=== PATIENT | female | born 1990 | race African-American/Black ===

== ENCOUNTER 2019-01-22 11:56 | Outpatient (CLI) | payer BC ==
--- NOTE | 2019-01-22 13:04 | RAD ---
TWO VIEWS LUMBAR SPINE: INDICATION: Status post nephrectomy with low back pain. FINDINGS: There are 5 lumbar-type vertebrae. There is mild disk degenerative disease at L5-S1. No acute fract ure or subluxation is evident. SI joints are normal-appearing. IMPRESSION: Mild disk degenerative disease at L5-S1. POS: [facility]
== END 2019-01-22 11:57 | disposition home or self-care (01) ==
LOC: BICRAD 11:56
PROVIDERS: ATTEND Family Medicine
DX: Z48.816 Encounter for surgical aftercare following surgery on the genitourinary system (principal); Z90.5 Acquired absence of kidney; M51.37 Other intervertebral disc degeneration, lumbosacral region
CPT/HCPCS: 36415; 72100; 80053